=== PATIENT | male | born 1970 | race Caucasian/White ===

== ENCOUNTER 2017-06-11 14:53 | Emergency (ER) | payer OTHER ==
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
[2017-06-11] MEDS ORDERED: LET GEL TOPICAL 1 EA SYR TP ONE ×2 (15:43→15:47)
[2017-06-11 16:21] VITALS: BP 116/73
[2017-06-11] MEDS ORDERED: IBUPROFEN 600 MG TAB PO ONE (16:24)
== END 2017-06-11 16:37 | disposition home or self-care (01) ==
DX: S60.512A Abrasion of left hand, initial encounter (principal); S39.012A Strain of muscle, fascia and tendon of lower back, initial encounter; S76.011A Strain of muscle, fascia and tendon of right hip, initial encounter; V18.2XXA Unspecified pedal cyclist injured in noncollision transport accident in nontraffic accident, initial encounter